=== PATIENT | female | born 1990 | race Two or more races ===

== ENCOUNTER 2025-02-19 11:44 | Emergency (ER) | payer OTHER ==
[~2025-02-19] VITALS: Ht 165.1 cm; Wt 67.1 kg
[2025-02-19] MEDS ORDERED: DEXAMETHASONE SODIUM PHOSPHATE 4 MG/ML VIAL IM STA (14:10)
[2025-02-19] MEDS ORDERED: DEXAMETHASONE SODIUM PHOSPHATE 4 MG/ML VIAL ONE (14:36)
[2025-02-19 15:34] LABS: HEMATOCRIT 40.5 % (34.1-44.9); HEMOGLOBIN 13.8 g/dL (11.2-15.7); MEAN CORPUSCULAR HEMOGLOBIN 29.4 pg (25.6-32.2); RED CELL DISTRIBUTION WIDTH 12.6 % (11.6-14.4)
[2025-02-19 15:35] LABS: BASO % 0.4 % (0.1-1.2); EOS # 0.03 (0.04-0.54); EOS % 0.3 % (0.7-7.0); LYMPH % 20.3 % (19.3-53.1); MONO # 1.39 (0.24-0.82); MONO % 11.8 % (4.7-12.5); NEUT # 7.92 (1.56-6.13); NEUT % 66.9 % (34.0-71.1); PLATELET COUNT 437 K/uL (163-369)
[2025-02-19 15:57] LABS: INFLUENZA A AG NEGATIVE (NEGATIVE)
[2025-02-19 16:00] LABS: COVID-19 AG NEGATIVE (NEGATIVE)
== END 2025-02-19 16:10 | disposition home or self-care (01) ==
LOC: ER 11:44
PROVIDERS: General Practice
DX: R07.0 Pain in throat (principal); Z20.822 Contact with and (suspected) exposure to COVID-19